=== PATIENT | male | born 1970 | race African-American/Black ===

== ENCOUNTER 2017-11-20 19:00 | Emergency (ER) | payer OTHER ==
[~2017-11-20] VITALS: Ht 175.3 cm; Wt 93.9 kg
[2017-11-20 19:12] VITALS: BP 135/95
[2017-11-20 21:42] LABS: ABSOLUTE BASOPHIL COUNT 0 /CUMM (0.0-0.2); ABSOLUTE EOSINOPHIL COUNT 0.1 /CUMM (0.0-0.7); ABSOLUTE GRANULOCYTE CT 2.8 /CUMM (1.4-6.5); ABSOLUTE MONOCYTE COUNT 0.4 /CUMM (0.10-0.60); BASOPHIL % 0.4 % (0.0-2.0); EOSINOPHIL % 1.3 % (0-5); GRANULOCYTE % 52.6 % (42.2-75.2); HEMATOCRIT 50.2 % (42-52); MEAN CORPUSCULAR HGB 28.1 PG (27.0-31.0); MEAN CORPUSCULAR HGB CONC 33.2 G/DL (33.0-37.0); MEAN CORPUSCULAR VOLUME 84.7 FL (80.0-94.0); MEAN PLATELET VOLUME 8.5 FL (7.4-10.4); PLATELET COUNT 262 /CUMM (130-400); RBC DISTRIBUTION WIDTH 14.2 % (11.5-14.5); RED BLOOD CELL CT 5.93 /CUMM (4.70-6.10); WHITE BLOOD CELL COUNT 5.3 /CUMM (4.8-10.8)
--- NOTE | 2017-11-20 21:58 | ED GENERAL ADULT ---
History of Present Illness General Chief Complaint: General Adult Stated Complaint: HIGH BLOOD SUGAR Source: patient Exam Limitations: no limitations Vital Signs & Intake/Output Vital Signs & Intake/Output Vital Signs Date Time Temp Pulse Resp B/P B/P Pulse O2 O2 Flow FiO2 Mean Ox Delivery Rate 11/20 2250 80 16 98 Room Air 11/20 2136 98 Room Air 11/20 1912 96.0 98 15 135/95 97 Room Air Room Air ED Intake and Output 11/21 0000 11/20 1200 Intake Total 3000 Output Total 100 Balance 2900 Intake, IV 3000 Output, Urine 100 Patient 207 lb Weight Weight Reported by Patient Measurement Method Allergies Coded Allergies: No Known Allergies (11/20/17) Triage Note: PT TO ED FOR C/C OF HIGH BLOOD SUGAR. PT SEEN AT WALK IN AND BS WAS 569. PT INITIALLY WENT TO WALK IN FOR INCREASED URINATION. FINGERSTICK 306 IN TRIAGE. PT DOESN'T OFFER SIGNIFICANT COMPLAINTS IN TRIAGE. Triage Nurses Notes Reviewed? yes HPI: Patient is a 47-year-old male with a PMH significant for DM type II, HTN, who was referred by urgent care for hyperglycemia. Patient states that he has had approximately one week of polydipsia, polyuria and intermittent blurry vision. These symptoms have been worse over the past 2 days prompting him to go to urgent care. While in urgent care he was hyperglycemic with his fingerstick reading was 569. He denies any other complaints at this time, fingerstick in triage was 306. He denies any headaches, focal neurological deficits, numbness, tingling, dysuria, hematuria, altered mental status, loss of consciousness. (Miguel DUEÑAS,Saroj) Past History Travel History Traveled to [place] past 21 day No Medical History Any Pertinent Medical History? see below for history Cardiovascular: hypertension Endocrine: TYPE II DM Blood Disorders: NONE Cancer(s): NONE SENIOR COST ANALYST/Reproductive: NONE Surgical History Surgical History: none Psychosocial History What is your primary language Haitian Tobacco Use: Never used ETOH Use: denies use Illicit Drug Use: denies illicit drug use Family History Hx Contributory? No (Miguel DUEÑAS,Saroj) Medical History Any Pertinent Medical History? see below for history (Vianey DUEÑAS,Saroj Deleon) Review of Systems Review of Systems Constitutional: Reports: no symptoms. EENTM: Reports: blurred vision (mild). Respiratory: Reports: no symptoms. Cardiovascular: Reports: no symptoms. GI: Reports: no symptoms. Genitourinary: Reports: frequency, nocturia. Denies: dysuria, hematuria. Musculoskeletal: Reports: no symptoms. Skin: Reports: no symptoms. Hematologic/Endocrine: Reports: polyuria, polydipsia. (Miguel DUEÑAS,Saroj) Physical Exam Physical Exam General Appearance: well developed/nourished, no apparent distress, alert, awake , comfortable Head: atraumatic, normal appearance Eyes: Bilateral: normal appearance, EOMI, pale conjunctivae. Ears, Nose, Throat: normal pharynx, hearing grossly normal Neck: normal inspection, full range of motion Respiratory: normal breath sounds, no respiratory distress, lungs clear Cardiovascular: regular rate/rhythm Peripheral Pulses: 2+ radial (R), 2+ radial (L) Gastrointestinal: normal bowel sounds, soft, non-tender Core Measures ACS in differential dx? No CVA/TIA Diagnosis: No Sepsis Present: No Sepsis Focused Exam Completed? No (Miguel DUEÑAS,Saroj) Physical Exam Neurologic/Psych: no motor/sensory deficits, awake, alert, oriented x 3, normal gait, normal mood/affect (Vianey DUEÑAS,Saroj Deleon) Progress Differential Diagnoses I considered the following diagnoses in my evaluation of the patient: [ hyperglycemia, HHS, DKA] Initial ED EKG: none (Miguel DUEÑAS,Saroj) Plan of Care: Orders Procedure Date/time Status FingerStick- Glucose 11/21 33 Active URINALYSIS 11/20 2023 Complete SERUM OSMOLALITY 11/20 2023 Complete COMPREHENSIVE METABOLIC PANEL 11/20 2023 Complete CBC WITHOUT DIFFERENTIAL 11/20 2023 Complete ACETONE 11/20 2023 Complete Laboratory Tests 11/20/17 2242: Urine Color YEL, Urine Clarity CLEAR, Urine pH 6.0, Ur Specific Unity 1.015, Urine Protein NEG, Urine Ketones 15 H, Urine Nitrite NEG, Urine Bilirubin NEG, Urine Urobilinogen 0.2, Ur Leukocyte Esterase NEG, Ur Microscopic EXAM NOT REQUIRED, Urine Hemoglobin NEG, Urine Glucose >=1000 H 11/20/17 2130: Anion Gap 18 H, Estimated GFR > 60, BUN/Creatinine Ratio 17.0, Glucose 316 H, Serum Osmolality 310 H, Calcium 10.2, Total Bilirubin 0.9, AST 24, ALT 49, Alkaline Phosphatase 107, Total Protein 8.9 H, Albumin 5.0, Globulin 3.9, Albumin/Globulin Ratio 1.3, CBC w Diff NO MAN DIFF REQ, RBC 5.93, MCV 84.7, MCH 28.1, MCHC 33.2, RDW 14.2, MPV 8.5, Gran % 52.6, Lymphocytes % 38.4, Monocytes % 7.3, Eosinophils % 1.3, Basophils % 0.4, Absolute Granulocytes 2.8, Absolute Lymphocytes 2.0, Absolute Monocytes 0.4, Absolute Eosinophils 0.1, Absolute Basophils 0, Acetone Level NEGATIVE Patient reports noncompliance with metformin and diabetic diet. Gives a one- week history of occasional blurry vision, polydipsia and polyuria. Will check CBC, BMP, UA and acetone level. Will treat with aggressive IV fluid rehydration. After 3L IV NS fingerstick glucose was 251. Patient was counseled on medication and diet compliance and recommended follow-up with his PCP within 1-2 days. (Saroj Rivera MD) (Saroj Winters MD) Departure Departure Disposition: HOME OR SELF CARE Condition: Stable Clinical Impression Primary Impression: Hyperglycemia without ketosis Referrals: Saroj Kumar MD (PCP/Family) Additional Instructions: Please follow-up with your primary care physician within 24-48 hours and inform him of this area visit. We encouraged continued compliance with a diabetic diet and your prescribed diabetic medication, metformin. Call your doctor or return to the ER if you should experience any change in mentation, loss of consciousness, any neurologic symptoms including weakness, numbness, visual changes, or worsening of urinary frequency and extreme thirst. Departure Forms: Customer Survey General Discharge Information (Saroj Rivera MD) Resident Co-Sign Statement Statement: ED Attending supervision documentation- [X] I saw and evaluated the patient. I have also reviewed all the pertinent lab results and diagnostic results. I agree with the findings and the plan of care as documented in the Resident's documentation. [X] I have reviewed the ED Record and agree with the Resident's documentation. [] Additions or exceptions (if any) to the Resident's note and plan are summarized below: [] (Saroj Winters MD) Critical Care Note Critical Care Note Critical Care Time: non-applicable (Saroj Winters MD) (Saroj Winters MD) Critical Care Note Critical Care Note Critical Care Time: non-applicable (Saroj Winters MD)
== END 2017-11-21 01:37 ==
LOC: ERH 19:00
PROVIDERS: Physician Assistant Medical
DX: E11.65 Type 2 diabetes mellitus with hyperglycemia (principal); I10 Essential (primary) hypertension
CPT/HCPCS: 81003; 96360; 96361; 99291